=== PATIENT | female | born 1975 | race Two or more races ===

== ENCOUNTER 2016-06-04 19:11 | Inpatient (IN) | payer SELFPAY ==
[~2016-06-04] VITALS: Ht 170.2 cm; Wt 78.9 kg
[2016-06-04] MEDS ORDERED: IV RINGERS,LACTATED 1000ML 1,000 ML IV SCH (19:32)
[2016-06-04] MEDS ORDERED: CITRIC ACID/SODIUM CITRATE 30 ML SOLUTION. PO PRN (19:45)
[2016-06-04] MEDS ORDERED: 0.9 % SODIUM CHLORIDE 10 ML DISP.SYRIN. IV PRN ×2 (19:45→22:30)
[2016-06-04] MEDS ORDERED: MAG HYDROX/AL HYDROX/SIMETH 30 ML ORAL.SUSP PO PRN ×2 (19:45→22:30)
[2016-06-04] MEDS ORDERED: LIDOCAINE 1% PF 30 ML VIAL. INJ PRN (19:45)
[2016-06-04] MEDS ORDERED: OXYTOCIN 30 UNIT/500 ML PREMIX 500 ML IV PRN ×3 (19:45→22:30)
[2016-06-04] MEDS ORDERED: TERBUTALINE 1 MG/ML VIAL. SQ PRN (19:45)
[2016-06-04] MEDS ORDERED: BUTORPHANOL 2 MG VIAL. IV PRN ×2 (19:45)
[2016-06-04 21:05] LABS: HEMATOCRIT 32.2 % (36.0-47.0); HEMOGLOBIN 10.8 g/dL (12.0-15.5); RED BLOOD COUNT 3.56 x10^6/uL (3.50-5.40); RED CELL DISTRIBUTION WIDTH 14.3 % (11.5-14.5); WHITE BLOOD COUNT 8.7 x10^3/uL (4.0-11.0)
[2016-06-04 21:45] VITALS: BP 129/78
--- NOTE | 2016-06-04 22:29 | PDOC ---
VAGINAL DELIVERY DATE DATE: 06/04/16 TIME: 22:26 : 6 Para: 5 EDC: Jun 10, 2016 VAGINAL DELIVERY: VTX VACCUM ASSISTED: No PLACENTA: Spontaneous WEIGHT 9# Amniotic Fluid: Clear PAIN: Natural EPISIOTOMY: No EBL 300cc COMPLICATIONS none CONDITION Stable Signs of Intrauterine Infectio: None Shoulder Dystocia: No DIAGNOSIS TIUP del Problems: SHELDON GO MD Jun 04, 2016 22:29
[2016-06-04] MEDS ORDERED: DIPHENHYDRAMINE HCL 25 MG CAPSULE PO PRN (22:30)
[2016-06-04] MEDS ORDERED: BENZOCAINE 20% TOPICAL AEROSOL SPRAY 57GM CAN. TP PRN (22:30)
[2016-06-04] MEDS ORDERED: MAGNESIUM HYDROXIDE 2,400 MG/30 ML ORAL.SUSP. PO PRN (22:30)
[2016-06-04] MEDS ORDERED: ZOLPIDEM 5 MG TABLET. PO PRN (22:30)
[2016-06-04] MEDS ORDERED: HYDROCODONE/APAP 5/325MG TABLET. PO PRN (22:30)
[2016-06-04] MEDS ORDERED: PHENYLEPH/MINERAL OIL/PETROLAT RECTAL OINTMENT 28GM TUBE. RC PRN (22:30)
[2016-06-04] MEDS ORDERED: HYDROCORTISONE 1% TOPICAL OINTMENT 30GM TUBE. TP PRN (22:30)
[2016-06-04] MEDS ORDERED: ACETAMINOPHEN 325 MG TABLET. PO PRN (22:30)
[2016-06-04] MEDS ORDERED: SIMETHICONE 80 MG TAB.CHEW PO PRN (22:30)
--- NOTE | 2016-06-04 22:31 | PDOC1 ---
OB - History Hx of Present Care: Good Care Ultrasounds: Normal mid trimester US Obstetrical Complications: None Medical Complications: None Past Family/Social History * Past Medical, Surgical, Family and Obstetric Histories reviewed from chart. Blood Type: B- Rubella: Immune RPR/VDRL: Negative GBS Status: Negative HBsAG: Negative OB - Chief Complaint & HPI Date of Admission: Date of Admission: Jun 04, 2016 at 19:11 Chief Complaint/History : 6 Para: 5 EDC: Jun 10, 2016 Reason for admission: active labor Admission Nurse Assessment Rev: Yes Problems: OB - Admission Exam Physical Exam Vitals: VS - Last 72 Hours, by Label Date Time Temp Pulse Resp B/P Pulse Ox O2 Delivery O2 Flow Rate FiO2 06/04/16 21:45 98.4 86 18 129/78 Room Air 98.4 HEENT: Normal, Nasal Mucosa Normal, Oropharynx Normal, Moist Membranes, Fontanelles Normal Heart: Regular Rate Lungs: Clear, Equal Abdomen: Gravid Extremities: Normal Pulses, No tenderness or swelling Reflexes: Normal Cervical Dilatation: 5cm Effacement: 75% Station: 0 Membranes: Intact Amniotic Fluid: Clear Heart Rate: Normal Accelerations: Accelerations Present Decelerations: No decelerations Short Term Variability: Present [employer]ing Machine Operator Variability: Minimal Assessment/Plan Assessment/Plan TIUP ACS SHELDON GO MD Jun 04, 2016 22:31
[2016-06-05] VITALS (8 sets, daily range): BP systolic 101–123; BP diastolic 53–72
[2016-06-05] MEDS: IBUPROFEN 800 MG TABLET. PO SCH ×2 (06:00→14:57)
[2016-06-05] MEDS ORDERED: FERROUS SULFATE 325 MG TABLET PO SCH (08:00)
[2016-06-06 05:15] VITALS: BP 106/63
[2016-06-06] MEDS: IBUPROFEN 800 MG TABLET. PO SCH (09:50)
[2016-06-06 10:09] VITALS: BP 111/71
--- NOTE | 2016-06-06 10:17 | PDOC ---
Provider Note Provider Note Late entry Doing well VSS Uterus NTTP FU in AM SHELDON GO MD Jun 06, 2016 10:17
--- NOTE | 2016-06-06 10:19 | PDOC3 ---
OB DISCHARGE SUMMARY DATE OF ADMISSION: 06/04/16 DATE OF DISCHARGE: 06/06/16 REASON FOR ADMISSION: Onset of labor PROCEDURES: None INTRAPARTUM PROCEDURES: Spontanous Vag Deliv PROCEDURES: None OPERATIONS: None DISCHARGE INFORMATION: Activity, Diet HOSPITAL COURSE Unremarkable CONDITION AT DISCHARGE Stable SHELDON GO MD Jun 06, 2016 10:18
[2016-06-06] MEDS ORDERED: NAPR500T3 PO (10:20)
[2016-06-06] MEDS ORDERED: HYDR-971 PO (10:20)
[2016-06-06 15:34] VITALS: BP 110/68
[2016-06-06 20:30] VITALS: BP 132/85
== END 2016-06-06 21:00 | disposition home or self-care (01) | DRG 775 ==
LOC: 3 SO LND 19:11 → 3 NORTH 06-05 01:25
PROVIDERS: ADMIT Specialist; ATTEND Specialist
PROC: 10E0XZZ Delivery of Products of Conception, External Approach (ICD-10-PCS; principal; 2016-06-04)
DX: O80 Encounter for full-term uncomplicated delivery (principal); Z3A.38 38 weeks gestation of pregnancy; Z37.0 Single live birth
CPT/HCPCS: 36415; 85014; 85027; 86593; 86850; 86900; 86901; J2590; J7120